=== PATIENT | male | born 1945 | race Caucasian/White ===

== ENCOUNTER 2018-11-25 07:33 | Emergency (ER) | payer MEDICARE ==
[2018-11-25 07:47] VITALS: BP 136/87
--- NOTE | 2018-11-25 07:51 | ED Physician Documentation ---
History of Present Illness - Stated complaint Stated Complaint: CONGESTION/COUGH - Chief complaint Chief Complaint: Heent - Additonal information Additional information: This is a 73-year-old male with a history of stroke with residual right-sided weakness, as well as expressive aphasia, who presents with cough congestion, sore throat, and nasal drainage. Patient traveled to [place] last month, and several weeks ago while there he began developing some cough congestion and clear nasal drainage. This improved but then his symptoms worsened on February 21. He has had several nosebleeds in has continued nasal drainage which is sometimes clear sometimes whitish. He also has a cough. He denies chest pain or shortness of breath, does not have a significant headache. He denies fever recently. Review of Systems Constitutional: denies: Fever Throat: reports: Sore throat Cardiac: denies: Chest pain / pressure Respiratory: reports: Cough. denies: Dyspnea PD PAST MEDICAL HISTORY - Past Medical History Past Medical History: Yes Cardiovascular: Other (CVA with residual right sided weakness and expressive aphasia) - Present Medications Home Medications: Ambulatory Orders Medication Instructions Recorded Confirmed Aspirin Chewable [St Seven 81 mg PO DAILY 01/07/16 01/07/16 Aspirin] Atorvastatin Calcium 20 mg PO 01/07/16 Lidocaine Patch 5% [Lidoderm Patch] 1 each TOP DAILY PRN #10 patch 01/07/16 Metoprolol Tartrate [Lopressor] 50 mg PO DAILY 01/07/16 01/07/16 amLODIPine [Norvasc] 5 mg PO DAILY 01/07/16 01/07/16 diazePAM [Valium] 5 mg PO TID PRN #15 tablet 01/07/16 Acetaminophen 650 mg PO Q6HR #30 tablet 11/25/18 Amox/Clav 875/125 [Augmentin] 1 each PO Q12H #14 tablet 11/25/18 - Allergies Allergies/Adverse Reactions: Allergies Allergy/AdvReac Type Severity Reaction Status Date / Time No Known Drug Allergies Allergy Verified 11/25/18 07:42 - Social History Does the pt smoke?: No Smoking Status: Never smoker - Family History Family history: reports: Non contributory PD ED PE NORMAL - Vitals Vital signs reviewed: Yes - General General: Alert and oriented X 3, No acute distress - HEENT HEENT: Other (Posterior pharynx erythematous, uvula is midline, there is no exudate.) - Neck Neck: Other (Mild anterior cervical lymphadenopathy) - Cardiac Cardiac: Other (Regular rate and rhythm, with occasional premature beats) - Respiratory Respiratory: No respiratory distress, Clear bilaterally, Other (Occasional cough) - Abdomen Abdomen: Soft, Non distended - Derm Derm: Warm and dry - Extremities Extremities: No deformity - Neuro Neuro: Other (Alert, oriented. Expressive aphasia which patient overcomes with writing at times. He can express himself fairly well, and states this is his baseline. He has right-sided weakness which is also his baseline.) - Psych Psych: Normal mood, Normal affect Results - Vitals Vitals: Vital Signs - 24 hr 11/25/18 07:42 Temperature 37.4 C Heart Rate 64 Respiratory 18 Rate Blood Pressure 136/87 H O2 Saturation 95 Oxygen O2 Source Room air PD MEDICAL DECISION MAKING - ED course Complexity details: considered differential (Viral upper respiratory infection, influenza, sinusitis, bacterial sinusitis, epistaxis) ED course: Patient presents with several weeks of nasal congestion, rhinorrhea, and cough. His vital signs are unremarkable and he is overall well-appearing. His symptoms improved and then worsened, which raises concern for a bacterial sinusitis. Given the duration of his symptoms greater than 10 days as well as the worsening after improvement, I discussed with him treatment options, and using shared decision-making and we will start a course of Augmentin. He has no new neurologic symptoms, high fever, shortness of breath or chest pain to suggest a more nefarious diagnosis at this time. I also recommended supportive care with Tylenol, fluids, rest. I recommended follow-up with his primary care provider, and return to the emergency department if he develops new or worsening symptoms such as inability to swallow, difficulty breathing, or severe headache. Patient agrees with this plan and was discharged home with a course of Augmentin and Tylenol. Departure - Departure Disposition: 01 Home, Self Care Clinical Impression: Sinusitis Qualifiers: Sinusitis location: unspecified location Chronicity: acute Recurrence: not specified as recurrent Qualified Code(s): J01.90 - Acute sinusitis, unspecified Condition: Good Instructions: ED Sinusitis Abx Tx Follow-Up: Toño Duran MD [Primary Care Provider] - Within 1 week Prescriptions: Acetaminophen 650 mg PO Q6HR #30 tablet Amox/Clav 875/125 [Augmentin] 1 each PO Q12H #14 tablet Comments: You were seen today for nasal drainage, cough, and congestion. It appears that you have a sinusitis, which may be bacterial since your symptoms have been going on for so long. Please take the antibiotic as prescribed, and drink plenty of fluids and get adequate rest. If you are developing worsening symptoms such as severe headache, new weakness or numbness, difficulty breathing, return to the emergency department. Otherwise please follow-up with your primary care provider. Discharge Date/Time: 11/25/18 08:24
[2018-11-25] MEDS ORDERED: AMOX/CLAV 875 MG/125 MG TABLET PO STA (08:10)
== END 2018-11-25 08:24 | disposition home or self-care (01) ==
LOC: ED 07:33
DX: J01.90 Acute sinusitis, unspecified (principal); I69.351 Hemiplegia and hemiparesis following cerebral infarction affecting right dominant side; I69.320 Aphasia following cerebral infarction; Z79.82 Long term (current) use of aspirin
CPT/HCPCS: 99282; 99284; A9270

== ENCOUNTER 2018-12-07 08:26 | Emergency (ER) | payer MEDICARE ==
[2018-12-07 08:36] VITALS: BP 125/76
--- NOTE | 2018-12-07 08:38 | ED Physician Documentation ---
History of Present Illness - Stated complaint Stated Complaint: COUGH - Chief complaint Chief Complaint: Resp - Additonal information Additional information: This is a 73-year-old male with a history of CVA with right-sided residual weakness and expressive aphasia, who presents with a recurrence of a cough. Patient Presented around 2 weeks ago after having a cough as well as copious nasal drainage for around 3 weeks. I saw him at that time, and he had a acute sinusitis which appeared bacterial, she was given a course of Augmentin which improved his symptoms. He states that his symptoms completely resolved for the last 2 weeks, and then starting 3 days ago he began developing a cough, mild sore throat, and clear nasal drainage. He has not had any purulent nasal drainage, denies any pain in his face. No fever. He denies chest pain or shortness of breath. The cough is not worse when he lies down, he has no leg swelling. No lightheadedness/syncope. Review of Systems Constitutional: denies: Fever Throat: denies: Dental pain / toothache Cardiac: denies: Chest pain / pressure Respiratory: denies: Dyspnea GI: denies: Abdominal Pain : denies: Dysuria Skin: denies: Rash PD PAST MEDICAL HISTORY - Past Medical History Cardiovascular: Other (CVA with residual right sided weakness and expressive aphasia) Neuro: CVA - Present Medications Home Medications: Ambulatory Orders Medication Instructions Recorded Confirmed Aspirin Chewable [St Seven 81 mg PO DAILY 01/07/16 01/07/16 Aspirin] Atorvastatin Calcium 20 mg PO 01/07/16 Lidocaine Patch 5% [Lidoderm Patch] 1 each TOP DAILY PRN #10 patch 01/07/16 Metoprolol Tartrate [Lopressor] 50 mg PO DAILY 01/07/16 01/07/16 amLODIPine [Norvasc] 5 mg PO DAILY 01/07/16 01/07/16 diazePAM [Valium] 5 mg PO TID PRN #15 tablet 01/07/16 Acetaminophen 650 mg PO Q6HR #30 tablet 11/25/18 Amox/Clav 875/125 [Augmentin] 1 each PO Q12H #14 tablet 11/25/18 Benzonatate [Tessalon Perle] 100 - 200 mg PO TID PRN #30 capsule 12/07/18 - Allergies Allergies/Adverse Reactions: Allergies Allergy/AdvReac Type Severity Reaction Status Date / Time No Known Drug Allergies Allergy Verified 12/07/18 08:35 - Social History Does the pt smoke?: No Smoking Status: Never smoker PD ED PE NORMAL - Vitals Vital signs reviewed: Yes - General General: Alert and oriented X 3, No acute distress - HEENT HEENT: Other (Clear rhinorrhea. No exudate or swellign of posterior pharynx. Able to communicate effectively with combination of verbal statement and writing.) - Neck Neck: Supple, no meningeal sign - Cardiac Cardiac: Other (Rate in 50s, normal rhythm.) - Respiratory Respiratory: No respiratory distress, Clear bilaterally - Abdomen Abdomen: Soft, Non tender - Derm Derm: Warm and dry - Extremities Extremities: No deformity - Neuro Neuro: Alert and oriented X 3, Other (Baseline expressive aphasia and right- sided weakness.) - Psych Psych: Normal mood, Normal affect Results - Vitals Vitals: Oxygen O2 Source Room air PD MEDICAL DECISION MAKING - ED course Complexity details: considered differential (URI, penumonia, allergies, sinusitis, bronchitis) ED course: VS notable for baseline bradycardia, no fever. Pt presents with cough and rhinorrhea for several days. He was diagnosed with sinusitis several weeks ago and after abx his symptoms completely improved for over a week. he has no facial pain, fever, shortness of breath, or physical exam findings to suggest sinusitis, pneumonia, or infection requiring abx at this time. I discussed that he appears to have a URI, recommended supportive care, and close PCP follow up. Return precautions discussed and patient was discharged home. Departure - Departure Disposition: 01 Home, Self Care Clinical Impression: Viral URI with cough Condition: Good Instructions: ED Viral Syndrome Follow-Up: Toño Duran MD [Primary Care Provider] - Within 1 week (For follow up on cough and rhinorrhea) Prescriptions: Benzonatate [Tessalon Perle] 100 - 200 mg PO TID PRN #30 capsule PRN Reason: Cough Comments: You were seen today for a cough and runny nose. I think this is likely a new cold/Upper respiratory infection. Please get plenty of rest, drink adequate fluids, you may try the Tessalon Perles for cough. If you develop fever, difficulty breathing, chest pain, or any other concerning symptoms return to the emergency department. Please follow-up with your primary care provider. Discharge Date/Time: 12/07/18 09:15
== END 2018-12-07 09:15 | disposition home or self-care (01) ==
LOC: ED 08:26
DX: J06.9 Acute upper respiratory infection, unspecified (principal); I69.351 Hemiplegia and hemiparesis following cerebral infarction affecting right dominant side; I69.320 Aphasia following cerebral infarction; Z79.82 Long term (current) use of aspirin
CPT/HCPCS: 99282; 99283

== ENCOUNTER 2020-09-20 18:06 | Emergency (ER) | payer MEDICARE ==
--- NOTE | 2020-09-20 19:01 | ED Physician Documentation ---
PD HPI LOWER EXT INJURY - Stated complaint Stated Complaint: RIGHT FOOT WONT WORK - Chief complaint Chief Complaint: Ext Problem - History obtained from History obtained from: Patient - Additional information Additional information: 74-year-old gentleman with history of stroke causing right-sided deficits and expressive aphasia presents for foot pain has been going on for the last 3 days. It seems localized to the third toe. He denies injury that was recollected but his the he notes his sensation on that side is not quite normal so he admits he may have done something to it without really noticing. He lives alone in [place]. He does wear orthotics on that side. Review of Systems Constitutional: denies: Fever, Chills Eyes: reports: Reviewed and negative Ears: reports: Reviewed and negative Nose: reports: Reviewed and negative PD PAST MEDICAL HISTORY - Past Medical History Past Medical History: Yes Cardiovascular: Other Neuro: CVA - Past Surgical History Past Surgical History: No - Present Medications Home Medications: Ambulatory Orders Medication Instructions Recorded Confirmed Atorvastatin Calcium 20 mg PO HS 01/07/16 09/20/20 Metoprolol Tartrate [Lopressor] 50 mg PO DAILY 01/07/16 09/20/20 amLODIPine [Norvasc] 5 mg PO DAILY 01/07/16 09/20/20 Apixaban [Eliquis] 5 mg PO BID 09/20/20 09/20/20 Cholecalciferol (Vitamin D3) 1,250 mcg PO DAILY 09/20/20 09/20/20 [Vitamin D3] Indomethacin [Indocin] 25 mg PO BIDWM #10 09/20/20 Tamsulosin [Flomax] 0.4 mg PO DAILY 09/20/20 09/20/20 - Allergies Allergies/Adverse Reactions: Allergies Allergy/AdvReac Type Severity Reaction Status Date / Time No Known Drug Allergies Allergy Verified 12/07/18 08:35 - Social History Does the pt smoke?: No Smoking Status: Never smoker Does the pt drink ETOH?: No Does the pt have substance abuse?: No PD ED PE NORMAL - Vitals Vital signs reviewed: Yes - Extremities Extremities: Other (He seems focally tender to the right third toe. There is no deformity warmth or redness.) - Neuro Neuro: Alert and oriented X 3, Other (He seems alert and oriented, but history is slightly limited because of fairly significant expressive aphasia. Contractured right upper extremity. He does seem to have decent strength in the right lower extremity.) - Psych Psych: Normal mood, Normal affect Results - Vitals Vitals: Vital Signs - 24 hr 09/20/20 18:16 Temperature 37 C Heart Rate 93 Respiratory 16 Rate Blood Pressure 137/78 H O2 Saturation 94 Oxygen O2 Source Room air - Labs Labs: Laboratory Tests 09/20/20 09/20/20 19:09 19:09 WBC 6.6 RBC 5.03 Hgb 16.3 Hct 46.8 MCV 93.0 MCH 32.4 H MCHC 34.8 RDW 13.0 Plt Count 219 MPV 9.8 Neut # (Auto) 4.2 Lymph # (Auto) 1.5 [place] # (Auto) 0.7 Eos # (Auto) 0.1 Baso # (Auto) 0.0 Absolute Nucleated RBC 0.00 Nucleated RBC % 0.0 Sodium 140 Potassium 4.0 Chloride 106 Carbon Dioxide 24 Anion Gap 10.0 BUN 31 H Creatinine 1.0 Estimated GFR (MDRD) 73 L Glucose 100 Uric Acid 7.6 H Calcium 9.2 - Rads (name of study) Right foot x-ray Radiology: EMP read contemporaneously PD MEDICAL DECISION MAKING - ED course ED course: 74-year-old gentleman with history of CVA presents with right foot pain that seems to be localized to the toes. Is not consistent with a neurologic issue. Both x-ray and labs are probably consistent with gout and he is treated with colchicine here and we discussed gout diet and usual return precautions as well as follow-up. Departure - Departure Disposition: 01 Home, Self Care Clinical Impression: Gout of right foot Qualifiers: Gout etiology: unspecified cause Chronicity: acute Qualified Code(s): M10.9 - Gout, unspecified Condition: Good Record reviewed to determine appropriate education?: Yes Instructions: ED Diet Gout, ED Arthritis Gout Prescriptions: Indomethacin [Indocin] 25 mg PO BIDWM #10 Comments: Follow-up with your primary care physician, return if worsening. If this becomes a recurrent phenomenon, consider starting allopurinol with your primary care physician, but it has to be about 6 to 8 weeks after a flare.
[2020-09-20 19:22] LABS: BASOPHILS % (AUTO) 0.6 %; EOSINOPHILS # (AUTO) 0.1 10^3/uL (0.0-0.7); EOSINOPHILS % (AUTO) 1.8 %; HCT - HEMATOCRIT 46.8 % (42.0-52.0); HGB - HEMOGLOBIN 16.3 g/dL (14.0-18.0); LYMPHOCYTES # (AUTO) 1.5 10^3/uL (1.5-3.5); LYMPHOCYTES % (AUTO) 23.4 %; MEAN CORPUSCULAR HEMOGLOBIN 32.4 pg (27.0-31.0); MEAN CORPUSCULAR HGB CONC 34.8 g/dL (32.0-36.0); MEAN PLATELET VOLUME 9.8 fL (7.4-11.4); MONOCYTES # (AUTO) 0.7 10^3/uL (0.0-1.0); MONOCYTES % (AUTO) 10.8 %; NEUTROPHILS # (AUTO) 4.2 10^3/uL (1.5-6.6); NEUTROPHILS % (AUTO) 63.1 %; PLT - PLATELET COUNT 219 10^3/uL (130-450); RED BLOOD COUNT 5.03 10^6/uL (4.70-6.10); WHITE BLOOD COUNT 6.6 x10^3/uL (4.8-10.8)
[2020-09-20 19:35] LABS: URIC ACID 7.6 mg/dL (2.6-7.2)
--- NOTE | 2020-09-20 19:47 | XRAY Report ---
PROCEDURE: Foot 3 View RT INDICATIONS: foot pain TECHNIQUE: 3 views of the foot were acquired. COMPARISON: None FINDINGS: Bones: No fractures or dislocations. 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 Hammertoe deformity at the t hird DIP joint. Periarticular erosive change laterally at the fifth PIP and to a lesser extent DIP joie int. Mild degenerative spurring at the first MTP and IP joints. No suspicious bony lesions. Soft tissues: No tibiotalar joint effusion. Achilles tendon appears normal. Heavy small vessel ath erosclerotic calcification. IMPRESSION: 1. No visible fractures or dislocation. 2. Arthritic changes in the digits as described, suggestive of gout at the fifth digit. Reviewed by: Domenica Oro MD on 09/20/2020 7:46 PM PDT Approved by: Domenica Oro MD on 09/20/2020 7:46 PM PDT Station ID: [id number]
[2020-09-20 19:49] LABS: CALCIUM 9.2 mg/dL (8.5-10.3)
[2020-09-20] MEDS ORDERED: INDOMETHACIN 25 MG CAPSULE PO STA (19:58)
[2020-09-20] MEDS ORDERED: COLCHICINE 0.6 MG TABLET PO STA (19:58)
[2020-09-20 20:17] VITALS: BP 126/89
== END 2020-09-20 20:33 | disposition home or self-care (01) ==
LOC: ED 18:06
DX: M10.9 Gout, unspecified (principal)
CPT/HCPCS: 36415; 73630; 80048; 84550; 85025; 99283; 99284; A9270

== ENCOUNTER 2020-10-07 17:37 | Outpatient (CLI) | payer MEDICARE | END 2020-10-07 17:38 | disposition EMS.NT | LOC: EMS 17:37 | DX: R53.83 Other fatigue (principal) ==

== ENCOUNTER 2021-01-22 15:30 | Outpatient (CLI) | payer MEDICARE | END 2021-01-22 23:59 | disposition home or self-care (01) | LOC: LAB 15:30 | PROVIDERS: ATTEND Physician Assistant Medical | DX: L03.119 Cellulitis of unspecified part of limb (principal); L02.818 Cutaneous abscess of other sites | CPT/HCPCS: 87070; 87205 ==

== ENCOUNTER 2022-10-27 08:00 | Outpatient (CLI) | payer MEDICARE | END 2022-10-27 23:59 | disposition home or self-care (01) | LOC: LAB.R 08:00 | PROVIDERS: ATTEND Physician Assistant Medical | DX: J02.9 Acute pharyngitis, unspecified (principal) | CPT/HCPCS: 87070 ==

== ENCOUNTER 2022-10-27 08:00 | Outpatient (CLI) | payer MEDICARE | END 2022-10-27 23:59 | disposition home or self-care (01) | LOC: LAB.S 08:00 | PROVIDERS: ATTEND Physician Assistant Medical | DX: J02.9 Acute pharyngitis, unspecified (principal); Z20.822 Contact with and (suspected) exposure to COVID-19 ==